=== PATIENT | female | born 1980 | race Two or more races ===

== ENCOUNTER 2016-12-11 13:30 | Inpatient (IN) | payer MEDICAID, OTHER ==
[~2016-12-11] VITALS: Ht 165.1 cm; Wt 90.6 kg
[2016-12-11] MEDS ORDERED: HYDROCODONE/APAP (5/325) TAB PO PRN ×3 (14:30→20:00)
[2016-12-11] MEDS ORDERED: MISOPROSTOL 200 MCG TAB PR PRN (14:30)
[2016-12-11] MEDS ORDERED: METHYLERGONOVINE 0.2 MG INJ IM PRN (14:30)
[2016-12-11] MEDS ORDERED: LIDOCAINE 1% (MPF) 30 ML INJ INJ PRN (14:30)
[2016-12-11] MEDS ORDERED: OXYTOCIN 30 UNITS/LR 500 ML IV SCH ×3 (14:30)
[2016-12-11] MEDS ORDERED: CARBOPROST 250 MCG INJ IM PRN (14:30)
[2016-12-11] MEDS ORDERED: OXYTOCIN 30 UNITS/LR 500 ML IV PRN (14:30)
[2016-12-11] MEDS ORDERED: IBUPROFEN 600 MG TAB PO PRN (14:30)
[2016-12-11 14:56] LABS: BASOPHILS % 0.3 % (0.0-2.0); EOSINOPHILS % 0.5 % (0.0-7.0); HEMATOCRIT 36.2 % (37.0-47.0); HEMOGLOBIN 12.6 g/dl (12.0-16.0); LYMPHOCYTES # 1.5 10^3/ul (0.8-2.9); LYMPHOCYTES % 26.1 % (15.0-51.0); MEAN CORPUSCULAR HEMOGLOBIN 33.4 pg (29.0-33.0); MEAN CORPUSCULAR HGB CONC 34.8 g/dl (32.0-37.0); MEAN PLATELET VOLUME 11.5 fl (7.4-10.4); MONOCYTE # 0.4 10^3/ul (0.3-0.9); MONOCYTES % 6.7 % (0.0-11.0); NEUTROPHIL # 3.8 10^3/ul (1.6-7.5); NEUTROPHILS % 65.7 % (39.0-77.0); PLATELET COUNT 193 10^3/UL (140-415); RED BLOOD COUNT 3.77 10^6/ul (4.20-5.40); RED CELL DISTRIBUTION WIDTH 12.5 % (11.5-14.5); WHITE BLOOD COUNT 5.8 10^3/ul (4.8-10.8)
[2016-12-11] MEDS ORDERED: LACTATED RINGER'S 1,000 ML IV PRN (15:00)
[2016-12-11] MEDS: LACTATED RINGER'S 1,000 ML IV SCH ×2 (15:06→16:51)
[2016-12-11 15:11] LABS: INR 0.88; PARTIAL THROMBOPLASTIN TIME 28.5 Sec (25.0-35.0); PROTIME 11.9 Sec (12.2-14.2); PT RATIO 0.9
[2016-12-11 15:27] VITALS: Ht 165.1 cm; Wt 90.6 kg
[2016-12-11] MEDS ORDERED: MINERAL OIL LIGHT 10 ML VIAL TOP ONE (15:30)
[2016-12-11] MEDS ORDERED: FENTAnyl 2MCG/ML-ROPIV 0.2% 100 ML ONE (16:10)
[2016-12-11] MEDS ORDERED: FENTAnyl 2MCG/ML-ROPIV 0.2% 100 ML BAG EPI SCH (17:00)
[2016-12-11] MEDS ORDERED: DIPHENHYDRAMINE 50 MG INJ IV PRN (17:00)
[2016-12-11] MEDS ORDERED: ONDANSETRON 4 MG INJ IV PRN ×2 (17:00→20:00)
[2016-12-11] MEDS ORDERED: NALOXONE (0.4 MG/ML) INJ IV PRN (17:00)
--- NOTE | 2016-12-11 17:52 | LDN ---
Date/Time of Note Date/Time of Note DATE: 12/11/16 TIME: 17:49 Delivery Summary Normal spontaneous vaginal delivery of a baby boy from OA position shoulders delivered without any difficulties rest of the baby's body follow cord clamped after stopped pulsation placenta is spontaneous expulsion inspected complete estimated blood loss 300 cc patient sustained small first-degree perineal laceration Weeks of Gestation 39 weeks and 4 days Placenta Delivered: Spontaneously Episiotomy: No Perineal laceration: 1 Laceration repair: First-degree perineal laceration repaired with 3-0 chromic catgut Anesthesia type: Epidural Sponge & Needle done & correct: Yes All needle counts correct: Yes Any foreign bodies felt in the: No Problems: Infant Delivery Information Sex Sex: male Apgars 1 Minute: 9 5 Minute: 9 Suctioning Nose & mouth suctioned at jak: Yes Delee suction performed: No Umbilical Cord Umbilical cord with: 3 Vessels Cord presentations: nuchal cord Cord Blood was obtained: Yes CESAR HERRERA MD Dec 11, 2016 17:52
--- NOTE | 2016-12-11 18:04 | HP ---
Date/Time of Note Date/Time of Note DATE: 12/11/16 TIME: 17:53 OB - History Hx of Present Free Text/Dictation 36 years old female EDC 12/2016 admitted to 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 Rubella: immune RPR/VDRL: Negative GBS Status: Negative HBsAG: Negative OB Admission Exam Physical Exam HEENT: WNL Heart: Rhythm Normal Lungs: Clear, Equal Abdomen: WNL Extremities: Normal Reflexes: Normal Station: -1 Membranes: Intact Heart Rate: 130's Accelerations: Accelerations Present Decelerations: Variable Decelerations Varibility: Moderate Contractions on Admission: < 5 Minutes Apart Intensity: Moderate Last 72 hours Lab Results CBC & BMP 12/11/16 14:45 OB Assessment/Plan Reason for admission: active labor Plan: Other (36 years old female EDC December 14 admitted in labor pelvic examination on admission cervix 4 cm dilated 80% effaced vertex at -1 station patient transferred from triage to labor and delivery expecting normal renal delivery) CESAR HERRERA MD Dec 11, 2016 18:03
[2016-12-11] MEDS ORDERED: WITCH HAZEL/GLYCERIN PAD PR PRN (20:00)
[2016-12-11] MEDS ORDERED: ACETAMINOPHEN 325 MG TAB PO PRN (20:00)
[2016-12-11] MEDS ORDERED: DIBUCAINE 1% 30 GM OINT PR PRN (20:00)
[2016-12-11] MEDS ORDERED: BENZOCAINE 20% 56 ML SPRAY TOP PRN (20:00)
[2016-12-11] MEDS ORDERED: OXYCODONE/ASPIRIN (4.88/325) TAB PO PRN ×2 (20:00)
[2016-12-11] MEDS ORDERED: LANOLIN 7 GM TUBE TOP PRN (20:00)
[2016-12-11 20:30] VITALS: BP 112/71; PULSE 68; RESP 18
[2016-12-11] MEDS: SENNA/DOCUSATE NA (8.6MG/50MG) TAB PO SCH (21:10)
[2016-12-11] MEDS: OXYTOCIN 30 UNITS/LR 500 ML IV SCH (22:16)
[2016-12-11] MEDS: IBUPROFEN 600 MG TAB PO SCH (23:45)
[2016-12-12] VITALS: BP 114/65; PULSE 84; RESP 18
[2016-12-12] MEDS: OXYTOCIN 30 UNITS/LR 500 ML IV SCH (02:21)
[2016-12-12 04:00] VITALS: BP 115/60; PULSE 71; RESP 18
[2016-12-12] MEDS: IBUPROFEN 600 MG TAB PO SCH ×4 (05:46→23:32)
[2016-12-12 07:35] VITALS: BP 92/53; PULSE 77; RESP 16
[2016-12-12] MEDS: SENNA/DOCUSATE NA (8.6MG/50MG) TAB PO SCH ×2 (08:56→21:26)
[2016-12-12] MEDS ORDERED: INFLUENZA VIRUS VACCINE 0.5 ML SYG IM* ONE (09:00)
[2016-12-12 10:51] LABS: BASOPHILS % 0.4 % (0.0-2.0); EOSINOPHILS # 0.1 10^3/ul (0.0-0.5); EOSINOPHILS % 1.3 % (0.0-7.0); HEMOGLOBIN 10.2 g/dl (12.0-16.0); LYMPHOCYTES # 1.2 10^3/ul (0.8-2.9); LYMPHOCYTES % 16.2 % (15.0-51.0); MEAN CORPUSCULAR HEMOGLOBIN 32.9 pg (29.0-33.0); MEAN CORPUSCULAR VOLUME 96.8 fl (82.0-101.0); MEAN PLATELET VOLUME 11.7 fl (7.4-10.4); MONOCYTE # 0.6 10^3/ul (0.3-0.9); MONOCYTES % 7.3 % (0.0-11.0); NEUTROPHIL # 5.6 10^3/ul (1.6-7.5); NEUTROPHILS % 74.5 % (39.0-77.0); PLATELET COUNT 152 10^3/UL (140-415); RED CELL DISTRIBUTION WIDTH 12.8 % (11.5-14.5); WHITE BLOOD COUNT 7.5 10^3/ul (4.8-10.8)
[2016-12-12 12:00] VITALS: BP 106/61; PULSE 87; RESP 16
--- NOTE | 2016-12-12 13:05 | QN ---
Documentation Comment Post normal vaginal delivery the Afebrile VSS Abdomen soft Uterus firm Lochia normal Extremity normal Ambulation encouraged CESAR HERRERA MD Dec 12, 2016 13:05
[2016-12-12 16:30] VITALS: BP 97/63; PULSE 75; RESP 16
[2016-12-12 20:00] VITALS: BP 111/60; PULSE 86; RESP 18
[2016-12-13 04:00] VITALS: BP 106/59; PULSE 76; RESP 18
[2016-12-13] MEDS: IBUPROFEN 600 MG TAB PO SCH ×3 (05:33→17:39)
[2016-12-13 08:10] VITALS: BP 104/49; PULSE 71; RESP 14
[2016-12-13] MEDS ORDERED: MEASLES,MUMPS,RUBELLA VACCINE INJ SC* ONE (09:00)
[2016-12-13] MEDS: SENNA/DOCUSATE NA (8.6MG/50MG) TAB PO SCH (09:37)
[2016-12-13 16:43] VITALS: BP 108/58; PULSE 85; RESP 16
--- NOTE | 2016-12-13 17:00 | DS ---
Date/Time of Note Date/Time of Note DATE: 12/13/16 TIME: 16:49 Discharge Summary Admission/Discharge Info Admit Date/Time Dec 11, 2016 at 14:23 Discharge Date/Time December 13, 2016 at 1700 Discharge Diagnosis Post normal vaginal delivery day 2 Patient Condition: Good Procedures Normal vaginal delivery Hx of Present Illness Term leg normal vaginal delivery Hospital Course Satisfactory uneventful Follow-up Plan instruction given recommended to make appointment to be seen at the clinic in 2 weeks Primary Care Provider Not On Staff Doctor Time spent on discharge: < 30 minutes CESAR HERRERA MD Dec 13, 2016 16:59
== END 2016-12-13 18:56 | disposition home or self-care (01) | DRG 775 ==
LOC: OBT 13:30 → L-D 13:30 → OBT 14:26 → PP1 20:26
PROVIDERS: ADMIT Obstetrics & Gynecology; ATTEND Obstetrics & Gynecology
PROC: 10E0XZZ Delivery of Products of Conception, External Approach (ICD-10-PCS; principal; 2016-12-11)
PROC: 0HQ9XZZ Repair Perineum Skin, External Approach (ICD-10-PCS; 2016-12-11)
PROC: 3E0P3VZ Introduction of Hormone into Female Reproductive, Percutaneous Approach (ICD-10-PCS; 2016-12-11)
DX: O69.81X0 Labor and delivery complicated by cord around neck, without compression, not applicable or unspecified (principal); O70.0 First degree perineal laceration during delivery; Z3A.39 39 weeks gestation of pregnancy; Z37.0 Single live birth
CPT/HCPCS: 62319; 85025; 85610; 85730; 86592; 86900; 86901; 87340; 90686; G0463; J2590; J3010; J7120

== ENCOUNTER 2017-05-10 06:18 | Day surgery (SDC) | END 2017-05-10 11:20 | disposition home or self-care (01) ==